=== PATIENT | male | born 1965 | race Caucasian/White ===

== ENCOUNTER 2019-07-27 09:19 | Day surgery (SDC) | payer BC ==
[2019-07-27] MEDS ORDERED: Morphine 4 MG/ML VIAL ONE ×2 (09:43→12:37)
[2019-07-27] MEDS ORDERED: Ondansetron PF 4 MG/2 ML Vial ONE ×3 (09:43→12:37)
[2019-07-27 09:56] LABS: #Lymphocytes 0.7 thou/uL (1.20-3.40); #Monocytes 0.8 thou/uL (0.11-0.59); #Neutrophils 6.4 thou/uL (1.40-6.50); %Basophils 0.2 % (0.0-1.0); %Eosinophils 0.2 % (0.0-10.0); %Lymphocytes 8.9 % (21.0-51.0); %Monocytes 9.6 % (0.0-10.0); %Neutrophils 81.2 % (42.0-75.0); Hemoglobin 16.2 g/dL (14.0-18.0); Mean Corpuscular Hemoglobin 32.1 pg (27.0-31.0); Mean Corpuscular Volume 94.5 fL (78.0-98.0); Mean Platelet Volume 8.5 fL (7.4-10.4); Platelet Count 163 thou/uL (130-400); RBC Distribution Width 11.2 % (11.5-14.5); Red Blood Cell (RBC) Count 5.05 mill/uL (4.70-6.10); White Blood Cell (WBC) Count 7.9 thou/uL (4.8-10.8)
[2019-07-27] MEDS ORDERED: Lidocaine 1% PF 5 ML VIAL ONE (10:04)
[2019-07-27] MEDS ORDERED: PROPOFOL 200 MG/20 ML VIAL ONE (10:04)
[2019-07-27] MEDS ORDERED: Succinylcholine Chloride 20 MG/ML 10 ml SYRINGE FS ONE (10:04)
[2019-07-27] MEDS ORDERED: Dexamethasone 20 MG/5 ML VIAL ONE (10:04)
[2019-07-27] MEDS ORDERED: ePHEDrine/0.9% NaCl/PF SYRINGE 50 mg/10 ml ONE (10:04)
[2019-07-27 10:14] LABS: ALT (SGPT) 22 U/L (8-55); AST (SGOT) 22 U/L (5-34); Alkaline Phosphatase 77 U/L (40-110); Anion Gap 16 mmol/L (10-20); BUN (Urea Nitrogen) 13 mg/dL (8.4-25.7); Bilirubin, Total 0.3 mg/dL (0.2-1.2); Calc. Creatinine Clearance 0 mL/min (70-130); Calcium 10.5 mg/dL (7.8-10.44); Carbon Dioxide 25 mmol/L (22-29); Chloride 104 mmol/L (98-107); Estimated GFR-MDRD 80; Globulin 2.5 g/dL (2.4-3.5); Glucose 124 mg/dL (70-105); Lipase 10 U/L (8-78); Potassium 4.1 mmol/L (3.5-5.1); Protein, Total 7.5 g/dL (6.0-8.3); Sodium 141 mmol/L (136-145)
--- NOTE | 2019-07-27 10:43 | ULT ---
EXAM: US Gallbladder RUQ CLINICAL HISTORY: Abdominal pain. COMPARISON: None. FINDINGS: Pancreas: The head of the pancreas has a normal echotexture. The remainder the pancreas is obscured Liver:Heterogeneous echotexture hepatic parenchyma may be due to hepatic steatosis or hepatocellular disease. Limited evaluation for hepatic masses and intrahepatic biliary dilatation. Right hepatic lobe measures 14.6 cm Gallbladder: Sonographic evidence of cholelithiasis. No pericholecystic fluid. Gallbladder wall is no t thickened Lyn's sign:Negative Portal Vein: Patent. Appropriate directional flow Bile ducts: Common bile duct diameter is 0.5 cm Right kidney: No hydronephrosis. Right kidney measures 11.1 x 5.4 x 5.3 cm in length. IMPRESSION: Sonographic evidence of cholelithiasis without evidence of cholecystitis. HIDA scan if clinically war ranted.
--- NOTE | 2019-07-27 12:57 | CT ---
CTA CHEST WITH 3D RENDERING CTA ABDOMEN WITH 3D RENDERING: HISTORY: Pain. TECHNIQUE: CT angiogram of the thoracic and abdominal aorta performed in the axial plane. Three-dimensional refo rmatted images are submitted for interpretation. FINDINGS: Chest CT: Mediastinum: No mass, lymphadenopathy or hematoma. Heart: Normal heart size. No pericardial effusion. Trachea: Trachea and central bronchi are patent. Pleural spaces: No pleural effusion. Lungs: No masses or consolidation. Pneumothorax: None. Abdomen CT: Patent portal vein. Solid organs: Appropriate arterial phase enhancement. Lymph nodes: No gastrohepatic, retrocrural or periportal lymphadenopathy. No mesenteric lymphadenopat hy. Mesentery: No mass, free air or free fluid. Kidneys: Symmetric enhancement. No obstructive uropathy. Gallbladder: CT evidence of cholelithiasis with mild gallbladder distention. There is enhancing focus involving the medial wall of the gallbladder measuring 0.5 x 1.3 cm. The possibility of an early cholangiocarcinoma cannot be excluded. Alimentary canal: Limited evaluation due to lack of contrast administration. No evidence of bowel obs truction. Normal caliber appendix. Osseous structures: No lytic or blastic lesions in the osseous structures. CT ANGIOGRAM: The root of the aorta has a normal appearance. The ascending thoracic aorta, aortic arch, descending thoracic aorta and the abdominal aorta has a normal course and caliber. Great vessels of the neck: The origin of the great vessels of the neck are patent. Celiac artery: Patent origin. Superior mesenteric artery: Patent origin. Renal arteries: Patent bilateral renal arteries. Inferior mesenteric artery: Patent. Aortic bifurcation: Appropriate enhancement and luminal diameter. Visualized iliac arteries are unrem arkable. IMPRESSION: 1. No CT evidence for aortic aneurysm or aortic dissection. 2. Possible cholangiocarcinoma. Consider general surgical consultation for possible elective removal of gallbladder. There is cholelithiasis without evidence of cholecystitis. Transcribed Date/Time: 07/27/2019 1:07 PM
[2019-07-27] MEDS ORDERED: Ketorolac Tromethamine 30 MG/ML VIAL ONE (14:25)
--- NOTE | 2019-07-27 15:15 | HP ---
HISTORY OF PRESENT ILLNESS: Lew Baires is a 53-year-old male from [facility] visiting [place] for the football game. He is due to fly out tomorrow. He began having pain, right upper quadrant, radiating to his back associated with nausea, anorexia yesterday. He presents to the emergency room. He has had similar milder episodes in a month's past, but none this severe. He was evaluated in the emergency room and liver function tests were noted to be normal. Glucose 124, calcium 10.5. Renal function normal. White count 7 and hemoglobin 16.2. ALLERGIES: NONE. SOCIAL HISTORY: Tobacco, none. Alcohol 2 to 3 drinks a day. 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 PAST SURGICAL HISTORY: Noncontributory. PAST MEDICAL HISTORY: MS treated in 1992, now stagnant and he is very functional. REVIEW OF SYSTEMS: Ten-point noncontributory. FAMILY HISTORY: Noncontributory. PHYSICAL EXAMINATION: HEAD EARS, EYES, NOSE AND THROAT: Unremarkable. Sclerae nonicteric LUNGS: Clear to auscultation. CARDIAC: Regular rate and rhythm without murmur or gallop. ABDOMEN: Soft, tenderness in right upper quadrant. Positive Lyn's. EXTREMITIES: Unremarkable. VITAL SIGNS: Blood pressure 140/70, heart rate 74, respiratory rate 18. NEUROLOGICAL: Intact. LABORATORY DATA: Laboratories as noted. Ultrasound of the gallbladder noted with gallstones and normal bile duct caliber. In addition, he had a CT dissection protocol which reveals a 1.5 cm perfused density in the gallbladder wall, suspicious for possible tumor. This is in the medial wall. ASSESSMENT/PLAN: 1. Cholecystitis with questionable tumor mass in the gallbladder wall. We would recommend laparoscopic video cholecystectomy, risks of infection, bleeding, visceral and biliary injury discussed with him. Questions answered, possibly open cholecystectomy discussed. Questions have been answered and we will proceed with laparoscopic cholecystectomy as an outpatient. 2. Multiple sclerosis. Job ID: [id number]
[2019-07-27] MEDS ORDERED: Bupivacaine HCl 0.5%/Epinephrine 1:200,000/PF 30 ml Vial ONE (16:19)
[2019-07-27] MEDS ORDERED: Fentanyl 100 MCG/2 ML VIAL ONE (16:25)
[2019-07-27] MEDS ORDERED: HYDROmorphone 0.5 MG/0.5 ML SYRINGE ONE (16:25)
[2019-07-27] MEDS ORDERED: Iopamidol-370 76% 500 ML 1 ML ONE (16:28)
[2019-07-27] MEDS ORDERED: Ondansetron HCl/PF 4 MG/2 ML Vial IVP PRN ×2 (17:28→20:27)
[2019-07-27] MEDS ORDERED: HYDROmorphone 2 MG/ML VIAL SLOW IVP PRN ×2 (17:28→20:27)
[2019-07-27] MEDS ORDERED: Promethazine HCl 25 MG/ML VIAL SLOW IVP PRN ×2 (17:28→20:27)
[2019-07-27] MEDS ORDERED: Promethazine HCl 25 MG/ML VIAL IM PRN ×2 (17:28→20:27)
[2019-07-27] MEDS ORDERED: PACU-Morphine 4MG/ML VIAL SLOW IVP PRN ×2 (17:28→20:27)
--- NOTE | 2019-07-27 20:47 | OP ---
DATE OF PROCEDURE: 07/27/2019 PREOPERATIVE DIAGNOSES: Acute cholecystitis, cholelithiasis, suggested 1.5 cm medial wall possible tumor by CAT scan in gallbladder. POSTOPERATIVE DIAGNOSES: Acute cholecystitis, cholelithiasis, suggested 1.5 cm medial wall possible tumor by CAT scan in gallbladder, without evident tumor, severe inflammation, severe gallbladder wall thickening, severe inflammatory changes in the surrounding omentum. ANESTHESIA: General, local of 0.5% Marcaine with epinephrine 30 mL. PROCEDURE PERFORMED: Laparoscopic video cholecystectomy. DESCRIPTION OF PROCEDURE: The patient was taken to the operating room, where under general anesthesia, the abdomen was clipped of hair, prepared with ChloraPrep, and draped in routine fashion. 0.5% Marcaine with epinephrine was infiltrated into the skin and subcutaneous tissue about each port site. Infraumbilical incision was made. Pneumoperitoneum to 15 mmHg was obtained with a Veress needle, replaced with a 5 port, and laparoscope was inserted. Right subxiphoid incision was made, and an 11 port was placed. Right subcostal incision was made at midclavicular entrance line, and a 5 port was placed. Liver appeared to be normal. Gallbladder was acutely inflamed with hydrops. There was a large number of stones obstructing the gallbladder out. There were severe omental inflammatory adhesions around the infundibulum. Fundus was grasped at the cephalad. Clear fluid was drained. Infundibulum was grasped and retracted laterally. Cystic artery and duct were dissected free. Critical view was obtained. There were severe inflammatory adhesions taken down to accomplish this. Once the critical view was obtained, cystic artery and duct were dissected free, and cystic artery and duct were doubly clipped proximally and divided, and gallbladder was dissected free from liver bed obtaining good hemostasis prior to division of final peritoneal attachments because of the questionable tumor mass seen on CAT scan. It was placed in Endobag and brought out through the subxiphoid incision enlarged. Irrigant and pneumoperitoneum were evacuated. Hemostasis was obtained in the liver bed. Mary was applied. Good hemostasis was accomplished. Irrigant and pneumoperitoneum were evacuated. All instruments were removed. Subxiphoid fascia was approximated with 0 Vicryl suture. Skin was approximated with interrupted subdermal 4-0 Monocryl, and Jermyn glue was applied. Job ID: [id number]
== END 2019-07-27 19:10 | disposition home or self-care (01) ==
LOC: ERS 09:19 → SDC/OP 15:37 → ERS 15:37 → SDC/OP 17:59
PROVIDERS: ATTEND Specialist
PROC: 0FT44ZZ Resection of Gallbladder, Percutaneous Endoscopic Approach (ICD-10-PCS; principal; 2019-07-27)
DX: K80.00 Calculus of gallbladder with acute cholecystitis without obstruction (principal); G35 Multiple sclerosis
CPT/HCPCS: 36415; 71275; 72191; 74175; 76705; 80053; 83690; 84484; 85025; 88304; 93005; 96361; 96365; 96366; 96375; 96376; J0670; J1100; J1170; J1885; J1956; J2001; J2270; J2405; J2704; J3010; Q9967